=== PATIENT | male | born 1960 | race Caucasian/White ===

== ENCOUNTER 2022-10-25 21:50 | Emergency (ER) | payer MEDICARE, SELFPAY ==
[2022-10-25 23:35] LABS: #Eosinphils 0.3 thou/uL (0.0-0.7); #Monocytes 0.3 thou/uL (0.11-0.59); #Neutrophils 5.4 thou/uL (1.40-6.50); %Basophils 0.5 % (0.0-1.0); %Eosinophils 3.8 % (0.0-10.0); %Lymphocytes 17.7 % (21.0-51.0); %Monocytes 3.9 % (0.0-10.0); %Neutrophils 73.6 % (42.0-75.0); Hematocrit 34.5 % (42.0-52.0); Hemoglobin 10.5 g/dL (14.0-18.0); Mean Corpuscular HGB CONC 30.4 g/dL (32.0-36.0); Mean Corpuscular Hemoglobin 25.9 pg (27.0-31.0); Mean Corpuscular Volume 85.2 fl (78.0-98.0); Mean Platelet Volume 9.8 fL (7.4-10.4); Platelet Count 269 10x3/uL (130-400); RBC Distribution Width 18.2 % (11.5-14.5); Red Blood Cell (RBC) Count 4.05 mill/uL (4.70-6.10); White Blood Cell (WBC) Count 7.4 10x3/uL (4.8-10.8)
[2022-10-25 23:45] LABS: Prothrombin Time 13.7 sec (12.0-14.7)
[2022-10-25 23:46] LABS: PTT 39.5 sec (22.9-36.1)
[2022-10-25 23:57] LABS: ALT (SGPT) 12 U/L (8-55); AST (SGOT) 11 U/L (5-34); Albumin 3.6 g/dL (3.5-5.0); Alkaline Phosphatase 103 U/L (40-110); Anion Gap 13 mmol/L (10-20); BUN (Urea Nitrogen) 16 mg/dL (8.4-25.7); Bilirubin, Total 0.3 mg/dL (0.2-1.2); Calc. Creatinine Clearance 0 mL/min (70-130); Calcium 8.7 mg/dL (7.8-10.44); Carbon Dioxide 25 mmol/L (22-29); Chloride 106 mmol/L (98-107); Estimated GFR 84; Glucose 133 mg/dL (70-105); Protein, Total 6.6 g/dL (6.0-8.3); Sodium 140 mmol/L (136-145)
[2022-10-26] MEDS ORDERED: Morphine 4 MG/ML VIAL ONE ×2 (00:31→03:22)
[2022-10-26] MEDS ORDERED: Vancomycin 1 GM/200 ML (FROZEN) BAG ONE (01:14)
[2022-10-26 02:31] LABS: Bilirubin Negative (Negative); Blood, Urine Negative (Negative); CAUTI Indications for Culture Alt mental st,lethar; Clarity Clear (Clear); Glucose, Urine (Dipstick) Normal (Negative); Ketone, Urine Negative (Negative); Leukocyte 250 Leu/uL (Negative); Nitrite Negative (Negative); Protein, Urine (Dipstick) 30 mg/dL (Neg-Trace); Specific Gravity, Urine 1.027 (1.002-1.036); Urobilinogen Normal mg/dL (Less than 2); pH, Urine 6.5 (5.0-9.0)
[2022-10-26 02:41] LABS: Bacteria/HPF None Seen HPF (None Seen); RBC/HPF 0-3 HPF (0-3); Squamous Epithelial 0-3 HPF (0-3); WBC/HPF 0-3 HPF (0-3)
[2022-10-26 02:42] LABS: Urine Culture Reflex No No
[2022-10-26] MEDS ORDERED: Iopamidol-370 76% 500 ML MDV (1 ML CHARGE) ONE (09:56)
== END 2022-10-26 05:39 | disposition home or self-care (01) ==
LOC: ERS 21:50
DX: I26.09 Other pulmonary embolism with acute cor pulmonale (principal); T81.49XA Infection following a procedure, other surgical site, initial encounter
CPT/HCPCS: 71045; 71275; 74177; 80053; 81001; 83605; 83880; 84484; 85025; 85610; 85730; 87040; 93005; 96365; 96367; 96372; 96375; 96376; J1650; J2270; J3370-JW; Q9967

== ENCOUNTER 2023-02-23 16:01 | Outpatient (CLI) | payer MEDICARE | END 2023-02-23 16:02 | disposition home or self-care (01) | LOC: BICRAD 16:01 | PROVIDERS: ATTEND Family Medicine | DX: M25.512 Pain in left shoulder (principal); M25.561 Pain in right knee; R05.1 Acute cough; M25.462 Effusion, left knee; M25.862 Other specified joint disorders, left knee; J98.4 Other disorders of lung | CPT/HCPCS: 36415; 71046; 80048; 83880; 85025 ==

== ENCOUNTER 2023-12-21 11:24 | Outpatient (CLI) | payer MEDICARE | END 2023-12-21 11:25 | disposition home or self-care (01) | LOC: BICRAD 11:24 | PROVIDERS: ATTEND Family Medicine | DX: R05.3 Chronic cough (principal); J98.4 Other disorders of lung; E11.9 Type 2 diabetes mellitus without complications; D64.9 Anemia, unspecified | CPT/HCPCS: 36415; 71046; 80053; 82728; 83540; 83550; 83880; 85025 ==